=== PATIENT | male | born 1935 | race Caucasian/White ===

== ENCOUNTER 2016-11-14 09:13 | Outpatient (CLI) | payer MEDICARE ==
--- NOTE | 2016-11-14 12:34 | PRG ---
DATE OF SERVICE: 11/14/2016 HISTORY: Mr. Abhinav Phan is a very pleasant 80-year-old gentleman who presents to the Wound Ce nter for evaluation of an ulceration of the scalp. The patient states that he has been receiving wo und care by Hugo Gray OT. He also states that he finished a recent course of p.o. antibiotics ap proximately 1 week ago, specifically ciprofloxacin. The patient states that he has not been perform ing any dressing changes on his own. The patient has no other complaints today. He denies any feve r or chills. PHYSICAL EXAMINATION: VITAL SIGNS: Temperature 98.3, pulse 72, blood pressure 145/70, Accu-Chek 104. HEENT: An ulceration of the scalp is present which measures approximately 7.1 x 5.3 cm. Granulatio n tissue is visible within the wound margins. No maceration of the skin of the periwound is noted. ASSESSMENT AND PLAN: 1. Scalp ulceration, chronic. The patient has been admitted to [facility] i n the past for treatment of scalp cellulitis secondary to methicillin-resistant Staphylococcus aureu s. At times, the patient's ulceration has almost healed completely. Dressing changes of Arglaes po wder and Mepilex border will be initiated today. These dressing changes are to be performed 3 times per week after cleansing and irrigation with the assistance of Home Health. I will see Mr. Phan again in two weeks. The patient understands and is in agreement with the preceding treatment plan. 2. History of headaches.
[2016-11-14] MEDS ORDERED: Sodium Chloride 0.9% 15 ML NEB ONE (13:49)
== END 2016-11-14 09:14 | disposition home or self-care (01) ==
LOC: WCC 09:13
PROVIDERS: ATTEND Family Medicine
DX: L98.499 Non-pressure chronic ulcer of skin of other sites with unspecified severity (principal)
CPT/HCPCS: 97602; A4218

== ENCOUNTER 2016-11-21 11:19 | Outpatient (CLI) | payer MEDICARE ==
--- NOTE | 2016-11-21 19:01 | MRI ---
LEFT KNEE MRI WITHOUT IV CONTRAST: History: 80-year-old male with left knee pain since last without definitive injury. Technique: Multiplanar, multisequence MR examination of the left knee is performed. There is some diffuse subcu taneous fat stranding, particularly anteriorly, medially and laterally. There is some tricompartment cartilage loss somewhat more prominent involving the medial compartment. There is a somewhat comple x tear of the lateral meniscus including a flap component at the level of the posterior root and als o at the mid body level. The medial meniscus appears intact. There is some minimal heterogeneous cyndie ear T2 hyperintensity and some T1 hypointensity involving the medial tibial plateau, particularly ce ntrally and posteriorly, this raises the possibility of an occult insufficiency type fracture or pos sibly a contusion although history indicates no evidence for recent trauma to account for a contusio n. The anterior and posterior cruciate ligaments, collateral ligament complexes, and quadriceps and patellar tendons are intact. No acute osteochondral defect. IMPRESSION: Minimally complex lateral meniscal tear including a flap component. Some minimal somewhat linear het erogeneous signal on T1 and T2 images involving the medial tibial plateau region, possibly subtle in sufficiency type fracture versus some minimal focal contusion. Degenerative changes with some cartil age loss, particularly the medial compartment. Diffuse subcutaneous nonspecific fat stranding. POS: OFF
== END 2016-11-21 11:20 | disposition home or self-care (01) ==
LOC: SCSMRI 11:19
PROVIDERS: ATTEND Internal Medicine
DX: M25.562 Pain in left knee (principal); M10.9 Gout, unspecified; S83.232A Complex tear of medial meniscus, current injury, left knee, initial encounter; M17.12 Unilateral primary osteoarthritis, left knee
CPT/HCPCS: 36415; 84550

== ENCOUNTER 2017-01-02 09:34 | Outpatient (CLI) | payer MEDICARE ==
--- NOTE | 2017-01-02 10:35 | PRG ---
DATE OF SERVICE: 01/02/2017 HISTORY: Mr. Abhinav Phan is a very pleasant 81-year-old gentleman, who presents to the Wound Ce nter for evaluation of an ulceration of the scalp. Since the patient's last visit, Mr. Phan has be en receiving dressing changes of Arglaes powder 3 times per week after cleansing and irrigation with the assistance of Home Health. Mr. Phan has no other complaints today. He denies any fever or chi lls. PHYSICAL EXAMINATION: VITAL SIGNS: Temperature 97.7, pulse 86, respirations 18, blood pressure 145/68. Accu-Chek 108. HEENT: Multiple ulcerations of the scalp are present. Granulation tissue is visible within the chase ins of each ulceration. No maceration of the skin of the periwound of any of the wounds is noted. N o purulent drainage is associated with any of the wounds. No cellulitis of the scalp is appreciated. ASSESSMENT AND PLAN: 1. Scalp ulceration, chronic. As stated above, multiple ulcerations of the scalp are now present. The patient has been admitted to [facility] in the past for treatment of scalp cellulitis secondary to methicillin-resistant Staphylococcus aureus. At times, the patient's ulcera tion has almost healed completely. Dressing changes of Arglaes powder will be discontinued. Dressin g changes of Hydrofera Blue and Mepilex border will be initiated today. These dressing changes are t o be performed 3 times per week after cleansing and irrigation with the assistance of Home Health. I will see Mr. Phan again in 2 weeks. The patient understands and is in agreement with the precedin g treatment plan. 2. History of headaches.
[2017-01-02] MEDS ORDERED: Sodium Chloride 0.9% 15 ML NEB ONE (17:46)
== END 2017-01-02 09:35 | disposition home or self-care (01) ==
LOC: WCC 09:34
PROVIDERS: ATTEND Family Medicine
DX: L98.498 Non-pressure chronic ulcer of skin of other sites with other specified severity (principal); R51 Headache
CPT/HCPCS: 97602; A4218

== ENCOUNTER 2017-01-23 08:10 | Outpatient (CLI) | payer MEDICARE ==
--- NOTE | 2017-01-23 09:33 | PRG ---
DATE OF SERVICE: 01/23/2017 HISTORY: Mr. Abhinav Phan is a very pleasant 81-year-old gentleman who presents to the Wound Dave ter for evaluation of an ulceration of the scalp. Since the patient's last visit, Mr. Phan has bee n receiving dressing changes of Hydrofera Blue 3 times per week after cleansing and irrigation with t he assistance of Home Health. The patient has no other complaints today. He denies any fever or chi lls. PHYSICAL EXAMINATION: VITAL SIGNS: Temperature 98.0, pulse 72, respirations 18, blood pressure 155/87. Accu-Chek 107. EXTREMITIES: Multiple ulcerations of the scalp are present. The ulcerations have improved in their appearance since the patient's last visit. Granulation tissue is visible within the margins of each ulceration. No purulent drainage is associated with any of the wounds. No cellulitis of the scalp i s appreciated. No maceration of the skin of the periwound of any of the wounds is noted. ASSESSMENT AND PLAN: 1. Scalp ulceration, chronic. As stated above, multiple ulcerations of the scalp are present. Also as stated above, these ulcerations have improved significantly in their appearance since the patient 's last visit. The patient has been admitted to [facility] in the past for tr eatment of scalp cellulitis secondary to methicillin-resistant Staphylococcus aureus. At times, the patient's ulceration has almost healed completely. Dressing changes of Hydrofera Blue will be contin ued 3 times per week after cleansing and irrigation with the assistance of Home Health. I will see Ramesh Phan again in 3-4 weeks. 2. History of headaches.
[2017-01-23] MEDS ORDERED: Sodium Chloride 0.9% 15 ML NEB ONE (17:05)
== END 2017-01-23 08:11 | disposition home or self-care (01) ==
LOC: WCC 08:10
PROVIDERS: ATTEND Family Medicine
DX: L98.499 Non-pressure chronic ulcer of skin of other sites with unspecified severity (principal); Z86.69 Personal history of other diseases of the nervous system and sense organs
CPT/HCPCS: 97602; A4218

== ENCOUNTER 2017-11-27 09:16 | Outpatient (CLI) | payer MEDICARE ==
--- NOTE | 2017-11-27 10:49 | RAD ---
ABDOMEN 1 VIEW: HISTORY: Constipation and diarrhea. COMPARISON: None. FINDINGS: The central catheter projects over the left lower quadrant of the abdomen. No dilated loops of large or small bowel. No abnormal calcifications projecting over the renal shado ws. Moderate stool burden. Small phleboliths in the pelvis. Five [id number] lumbar-type vertebrae. Evaluation for free air is limited without an upright ex amination. IMPRESSION: Moderate stool burden. POS: TPC
== END 2017-11-27 09:17 | disposition home or self-care (01) ==
LOC: BICRAD 09:16
PROVIDERS: ATTEND Internal Medicine Gastroenterology
DX: R19.7 Diarrhea, unspecified (principal); R19.5 Other fecal abnormalities
CPT/HCPCS: 74018

== ENCOUNTER 2018-10-04 09:11 | Outpatient (CLI) | payer MEDICARE ==
--- NOTE | 2018-10-04 15:11 | NM ---
NUCLEAR MEDICINE BRAIN IMAGING: HISTORY: Tremor, unspecified TECHNIQUE: A Ashley scan with axial tomographic images of the brain was obtained 3 hours following the intravenous administration of 5mCi I-123 Ioflupane. The patient was pretreated with 130 mg of oral potassium iodide 1 hour prior to the injection. FINDINGS: There is loss of normal symmetric comma shaped shaped uptake in the striata bilaterally. IMPRESSION: Parkinsonian syndrome. (Parkinsonian syndromes include Parkinson's disease, multiple system atrophy, progressive supranuclea r palsy, dementia with Lewy bodies and cortical basal degeneration).
== END 2018-10-04 09:12 | disposition home or self-care (01) ==
LOC: NM 09:11
PROVIDERS: ATTEND Psychiatry & Neurology Neurology
DX: R25.1 Tremor, unspecified (principal); R26.9 Unspecified abnormalities of gait and mobility; G20 Parkinson's disease
CPT/HCPCS: 78607; A9584

== ENCOUNTER 2021-06-04 00:04 | Emergency (ER) | payer MEDICARE | END 2021-06-04 01:54 | disposition home or self-care (01) | LOC: ERS 00:04 | DX: F03.90 Unspecified dementia, unspecified severity, without behavioral disturbance, psychotic disturbance, mood disturbance, and anxiety (principal); E11.9 Type 2 diabetes mellitus without complications; E03.9 Hypothyroidism, unspecified; K21.9 Gastro-esophageal reflux disease without esophagitis; E78.5 Hyperlipidemia, unspecified; E78.00 Pure hypercholesterolemia, unspecified; I10 Essential (primary) hypertension; Z86.73 Personal history of transient ischemic attack (TIA), and cerebral infarction without residual deficits; Z87.891 Personal history of nicotine dependence | CPT/HCPCS: 99284 ==